=== PATIENT | female | born 1960 | race Caucasian/White ===

== ENCOUNTER → 2018-12-13 | Outpatient (CLI) | payer SELFPAY | LOC: CARD 09:15 | PROVIDERS: ATTEND Nurse Practitioner Primary Care | DX: I35.0 Nonrheumatic aortic (valve) stenosis (principal); I35.1 Nonrheumatic aortic (valve) insufficiency | CPT/HCPCS: 93306 ==

== ENCOUNTER 2019-01-27 19:11 | Emergency (ER) | payer SELFPAY ==
[~2019-01-27] VITALS: Ht 152.5 cm; Wt 81.3 kg
--- NOTE | 2019-01-27 19:45 | ED Lower Extremity ---
General Chief Complaint: Lower Extremity Stated Complaint: POST HEART CATH BRUISING Source: patient (POOR HISTORIAN, EVEN WITH PIPE FITTER WELDING. ), family (DAUGHTER, VIA LANGUAGE LINE PIPE FITTER WELDING--FAIR HISTORIAN), foreign language interpreter (VIA LANGUAGE LINE) Exam Limitations: language barrier History of Present Illness Date Seen by Provider: Jan 27, 2019 Time Seen by Provider: 19:23 Initial Comments PT ARRIVES VIA POV FROM HOME PT HAD CARDIAC CATH DONE AT [facility] ON 01/20/[address] BORRERO. PT NOR DAUGHTER ARE ABLE TO STATE WHY THE PROCEDURE WAS DONE, AND NEITHER KNOW IF ANY INTERVENTION WAS DONE PT HAS HAD ONGOING BRUISING TO RIGHT THIGH SINCE THE PROCEDURE--NO BRUISING OR SWELLING OR PAIN TO GROIN ITSELF, AT THE SITE OF ENTRY IN RIGHT GROIN NO PAIN TO LEG AT ALL NO PARESTHESIAS OR MOTOR DEFICITS NO CHEST PAIN, NO SHORTNESS OF BREATH, NO PALPITATIONS, NO FEVER/SWEATS/CHILLS PT IS NOT ON ASPIRIN OR BLOOD THINNERS. SYMPTOMS ARE NO DIFFERENT TONIGHT STATES THEY WENT TO THE [facility] WALK IN CLINIC, AND WERE SENT HERE TO ER "TO GET AN ULTRASOUND" --ULTRASOUND IS NOT AVAILABLE AT THIS HOUR. THEY DID NOT CONTACT ER PRIOR TO SENDING THE PT HERE. HAS NOT ATTEMPTED TO CONTACT THE [employer] CL[employer]ICAL PROGRAMMER AT ANY TIME. PCP: [facility] Allergies and Home Medications Patient Home Medication List Home Medication List Reviewed: Yes Review of Systems Constitutional: no symptoms reported Respiratory: no symptoms reported Cardiovascular: no symptoms reported Musculoskeletal: see HPI Skin: see HPI Psychiatric/Neurological: No Symptoms Reported Past Iymywhz-Wsemjm-Venmtm Hx Patient Social History Alcohol Use: Denies Use Recreational Drug Use: No Smoking Status: Never a Smoker Recent Foreign Travel: No Contact w/Someone Who Travel: No Past Medical History Surgeries: Yes (CARDIAC CATH 01/20/19--DR. BORRERO AT [facility]) Cardiac Cardiac: Yes ([facility] NOTED ON EXAM 01/27/19--PT WAS UNAWARE) Hypertension Endocrine: Yes Diabetes, Non-Insulin dep Family Medical History VERY LIMITED INFORMATION FROM PT OR DAUGHTER--NO NOT REALLY KNOW ANY OF HER PMH EXCEPT DIABETES AND HTN Physical Exam Vital Signs Vital Signs - First Documented 01/27/19 01/27/19 19:23 20:38 Temp 36.7 Pulse 82 Resp 18 B/P (MAP) 138/65 (89) Pulse Ox 98 O2 Delivery Room Air Capillary Refill : Height, Weight, BMI Height: '" Weight: lbs. oz. kg; BMI Method: General Appearance: WD/WN, no apparent distress Neck: normal inspection Cardiovascular: regular rate, rhythm, no JVD, systolic murmur (5/6) Respiratory: normal breath sounds, no respiratory distress, no accessory muscle use Hips: right hip non-tender, right hip normal inspection, right hip normal range of motion, right hip no evidence of injury Legs: right leg non-tender, right leg normal range of motion, right leg ecch ymosis, right leg other (RIGHT THIGH WITH BRUISING TO ENTIRE ANTERIOR ASPECT OF THIGH, DOWN TO MEDIAL ASPECT OF RIGHT KNEE--BRUISING APPEARS TO BE OLD AND DEPENDENT. HAS MILD TO MODERATE SWELLING OF RIGHT THIGH, BUT NO SWELLING BELOW THE KNEE. DISTAL MOTOR/SENSORY/VASCULAR INTACT. CATH SITE IN RIGHT GROIN IS COMPLETELY NORMAL--NO REDNESS, NO SWELLING, NO TENDERNESS, NO MASSES. 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 II-XII nml as tested, no motor/sensory deficits, alert, normal mood/affect, oriented x 3 Skin: normal color, warm/dry, ecchymosis ( ABOVE) Progress/Results/Core Measures Results/Orders Lab Results Laboratory Tests Test 01/27/19 19:51 Range/Units White Blood Count 11.3 H 4.3-11.0 10^3/uL Red Blood Count 3.59 L 4.35-5.85 10^6/uL Hemoglobin 10.7 L 11.5-16.0 G/DL Hematocrit 31 L 35-52 % Mean Corpuscular Volume 87 80-99 FL Mean Corpuscular Hemoglobin 30 25-34 PG Mean Corpuscular Hemoglobin Concent 34 32-36 G/DL Red Cell Distribution Width 13.4 10.0-14.5 % Platelet Count 321 130-400 10^3/uL Mean Platelet Volume 8.7 7.4-10.4 FL Neutrophils (%) (Auto) 75 42-75 % Lymphocytes (%) (Auto) 15 12-44 % Monocytes (%) (Auto) 8 0-12 % Eosinophils (%) (Auto) 2 0-10 % Basophils (%) (Auto) 0 0-10 % Neutrophils # (Auto) 8.5 H 1.8-7.8 X 10^3 Lymphocytes # (Auto) 1.7 1.0-4.0 X 10^3 Monocytes # (Auto) 0.9 0.0-1.0 X 10^3 Eosinophils # (Auto) 0.2 0.0-0.3 10^3/uL Basophils # (Auto) 0.1 0.0-0.1 10^3/uL Prothrombin Time 12.6 12.2-14.7 SEC INR Comment 0.9 0.8-1.4 Activated Partial Thromboplast Time 32 24-35 SEC Sodium Level 142 135-145 MMOL/L Potassium Level 4.3 3.6-5.0 MMOL/L Chloride Level 108 H 98-107 MMOL/L Carbon Dioxide Level 22 21-32 MMOL/L Anion Gap 12 5-14 MMOL/L Blood Urea Nitrogen 12 7-18 MG/DL Creatinine 0.63 0.60-1.30 MG/DL Estimat Glomerular Filtration Rate > 60 BUN/Creatinine Ratio 19 Glucose Level 133 H 70-105 MG/DL Calcium Level 9.7 8.5-10.1 MG/DL My Orders Orders - AMA BLANCHARD DO Basic Metabolic Panel (01/27/19 19:43) Cbc With Automated Diff (01/27/19 19:43) Protime With Inr (01/27/19 19:43) Partial Thromboplastin Time (01/27/19 19:43) Vital Signs/I&O 01/27/19 01/27/19 19:23 20:38 Temp 36.7 36.7 Pulse 82 82 Resp 18 18 B/P (MAP) 138/65 (89) 138/65 (89) Pulse Ox 98 O2 Delivery Room Air Progress Progress Note : Progress Note ADVISED PT AND DAUGHTER THAT WE DID NOT HAVE ULTRASOUND SERVICES AT THIS HOUR, AND PT WOULD NEED TO BE TRANSFERRED TO ANOTHER FACILITY/[facility] FOR FURTHER EVALUATION IF NECESSARY TONIGHT PT AND DAUGHTER DO NOT WANT TO GO TO [facility] AND JUST WANT TO GO HOME AND HAVE OUTPATIENT ULTRASOUND ADVISED THEM THAT IF PT'S SYMPTOMS WORSENED, IF SHE DEVELOPED PAIN IN LEG, NUMBNESS OR TINGLING IN LEG, CHEST PAIN, PALPITATIONS, DIZZINESS, OR SHORTNESS OF BREATH THAT SHE NEEDED TO RETURN TO ER IMMEDIATELY AND PT WOULD NEED TO BE TRANSFERRED TO [place], IF ULTRASOUND IS NOT AVAILABLE HERE AT THAT TIME. PT COMPLETELY ASYMPTOMATIC FOR ENTIRE ER STAY Departure Communication (Admissions) 1938--SPOKE WITH DR. LEBLANC, ENGINEERING PRODUCTION LIAISON FOR [facility]. SHE ADVISES THAT PT SHOULD COME TO CLINIC TOMORROW MORNING AND CAN ARRANGE OUTPATIENT ULTRASOUND OF LEG AT THAT TIME. Impression Primary Impression: POST CARDIAC CATH BRUISING OT RIGHT THIGH Disposition: HOME, SELF-CARE Condition: Stable Departure-Patient Inst. Referrals: [facility] (PCP) Primary Care Physician CAMI PATTERSON APRN (Family) Primary Care Physician Patient Instructions: Bleeding After Surgery Add. Discharge Instructions: CONTINUE YOUR CURRENT MEDICATIONS PRESCRIBED FOLLOW UP WITH [facility] IN THE MORNING FOR FURTHER CARE RETURN TO ER IF SYMPTOMS WORSEN All discharge instructions reviewed with patient and/or family. Voiced understanding. AMA BLANCHARD DO Jan 27, 2019 19:45 POS
[2019-01-27 19:59] LABS: BASOPHILS # (AUTO) 0.1 10^3/uL (0.0-0.1); BASOPHILS % (AUTO) 0 % (0-10); EOSINOPHILS # (AUTO) 0.2 10^3/uL (0.0-0.3); EOSINOPHILS % (AUTO) 2 % (0-10); HEMATOCRIT 31 % (35-52); HEMOGLOBIN 10.7 G/DL (11.5-16.0); LYMPHOCYTES # (AUTO) 1.7 X 10^3 (1.0-4.0); LYMPHOCYTES % (AUTO) 15 % (12-44); MEAN CORPUSCULAR HEMOGLOBIN 30 PG (25-34); MEAN CORPUSCULAR HGB CONC 34 G/DL (32-36); MEAN CORPUSCULAR VOLUME 87 FL (80-99); MEAN PLATELET VOLUME 8.7 FL (7.4-10.4); MONOCYTES # (AUTO) 0.9 X 10^3 (0.0-1.0); MONOCYTES % (AUTO) 8 % (0-12); NEUTROPHILS # (AUTO) 8.5 X 10^3 (1.8-7.8); NEUTROPHILS % (AUTO) 75 % (42-75); PLATELET COUNT 321 10^3/uL (130-400); RED CELL DISTRIBUTION WIDTH 13.4 % (10.0-14.5); WHITE BLOOD COUNT 11.3 10^3/uL (4.3-11.0)
[2019-01-27 20:11] LABS: INR 0.9 (0.8-1.4); PROTHROMBIN TIME PATIENT 12.6 SEC (12.2-14.7)
[2019-01-27 20:19] LABS: BUN/CREATININE RATIO 19; CALCIUM 9.7 MG/DL (8.5-10.1); CARBON DIOXIDE 22 MMOL/L (21-32); CHLORIDE 108 MMOL/L (98-107); CREATININE SERUM 0.63 MG/DL (0.60-1.30); GFR ESTIMATED > 60; GLUCOSE 133 MG/DL (70-105); POTASSIUM 4.3 MMOL/L (3.6-5.0); SODIUM 142 MMOL/L (135-145)
[2019-01-27 20:38] VITALS: BP 138/65
== END 2019-01-27 20:40 | disposition home or self-care (01) ==
LOC: EDUNIT# 19:11 → ER 19:13
DX: I97.610 Postprocedural hemorrhage of a circulatory system organ or structure following a cardiac catheterization (principal); I10 Essential (primary) hypertension; E11.9 Type 2 diabetes mellitus without complications; Z82.49 Family history of ischemic heart disease and other diseases of the circulatory system
CPT/HCPCS: 36415; 80048; 85025; 85610; 85730; 99283